=== PATIENT | female | born 1960 | race Caucasian/White ===

== ENCOUNTER → 2017-07-29 08:47 | Outpatient (POV) | payer OTHER, SELFPAY | PROVIDERS: Visit Provider Physician Assistant | DX: Z00.00 Encounter for general adult medical examination without abnormal findings (principal) ==

== ENCOUNTER 2024-10-08 07:44 | Outpatient (RCR) | payer OTHER, SELFPAY | END 2024-10-08 23:59 | disposition home or self-care (01) | LOC: PT.CARL 07:44 | PROVIDERS: Visit Provider Nurse Practitioner Family | DX: M25.512 Pain in left shoulder (principal) | CPT/HCPCS: 97032; 97110; 97161 ==

== ENCOUNTER 2024-11-05 08:00 | Outpatient (RCR) | payer OTHER, SELFPAY | END 2024-11-05 23:59 | disposition home or self-care (01) | LOC: PT.CARL 08:00 | PROVIDERS: Visit Provider Nurse Practitioner Family | DX: M25.512 Pain in left shoulder (principal) | CPT/HCPCS: 97014; 97032; 97035; 97110; 97164; 97530; G0283 ==

== ENCOUNTER 2024-12-03 08:00 | Outpatient (RCR) | payer OTHER, SELFPAY | END 2024-12-08 10:47 | disposition home or self-care (01) | LOC: PT.CARL 08:00 | PROVIDERS: Visit Provider Nurse Practitioner Family | DX: M25.512 Pain in left shoulder (principal) | CPT/HCPCS: 97014; 97032; 97110; 97530; G0283 ==